=== PATIENT | male | born 1960 | race Caucasian/White ===

== ENCOUNTER 2016-12-16 14:33 | Emergency (ER) | payer SELFPAY ==
[~2016-12-16] VITALS: Ht 180.3 cm; Wt 85.9 kg
[~2016-12-16 14:33] MED LIST: NAPR500 PO
[2016-12-16 14:38] VITALS: BP 182/107; PULSE 69; RESP 16; TEMP 98.1; O2SAT 98
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
[2016-12-16] MEDS ORDERED: MEDR4PAK PO (14:53)
[2016-12-16] MEDS ORDERED: ROBA500T PO (14:57)
[2016-12-16] MEDS ORDERED: IBUP800T23 PO (14:57)
[2016-12-16] MEDS ORDERED: KETOROLAC TROMETHAMINE 60 MG/2 ML (IM) VIAL IM ONE (15:00)
[2016-12-16] MEDS ORDERED: ORPHENADRINE INJ 60 MG/2 ML AMP IM ONE (15:00)
[2016-12-16 15:22] VITALS: BP 183/102
[2016-12-17] MEDS ORDERED: HYDR-3533 PO (09:54)
== END 2016-12-16 15:41 | disposition home or self-care (01) ==
LOC: PHEFT 14:33
DX: M54.31 Sciatica, right side (principal); R03.0 Elevated blood-pressure reading, without diagnosis of hypertension
CPT/HCPCS: 96372; 99284; J1885; J2360

== ENCOUNTER 2016-12-17 06:35 | Emergency (ER) | payer SELFPAY ==
[~2016-12-17] VITALS: Ht 180.3 cm; Wt 86.0 kg
[~2016-12-17 06:35] MED LIST changes: +IBUP800T23 PO; +MEDR4PAK PO; +ROBA500T PO
[2016-12-17 06:40] VITALS: BP 208/107; PULSE 61; RESP 18; TEMP 97.7; O2SAT 99
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
[2016-12-17] MEDS ORDERED: ACETAMINOPHEN/HYDROcodone 325 MG/5 MG TAB PO ONE (08:30)
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
[2016-12-17] MEDS ORDERED: HYDR-3533 PO (09:54)
== END 2016-12-17 21:20 | disposition home or self-care (01) ==
LOC: NEPC 06:35
DX: M54.31 Sciatica, right side (principal); M62.838 Other muscle spasm
CPT/HCPCS: 93971; 99284

== ENCOUNTER 2017-05-10 11:52 | Emergency (ER) | payer SELFPAY ==
[~2017-05-10] VITALS: Ht 180.3 cm; Wt 88.0 kg
[~2017-05-10 11:52] MED LIST changes: +HYDR-3533 PO; +IBUP1TAB7 PO; -IBUP800T23 PO; -NAPR500 PO
[2017-05-10 12:00] VITALS: BP 220/119; PULSE 66; RESP 16; TEMP 98.2; O2SAT 99
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
[2017-05-10 12:10] VITALS: BP 216/119; PULSE 67; RESP 16; O2SAT 99
[2017-05-10] MEDS ORDERED: PROCHLORPERAZINE INJ 10 MG/2 ML VIAL IVP ONE (12:15)
[2017-05-10] MEDS ORDERED: METOCLOPRAMIDE HCL 10 MG/2 ML VIAL IVP ONE (12:15)
[2017-05-10] MEDS ORDERED: PROPARACAINE HCL 0.5% OPHT SOLN 15 ML BTL EACH EYE ONE (12:15)
[2017-05-10] MEDS ORDERED: KETOROLAC TROMETHAMINE 30 MG/ML (IVP) VIAL IVP ONE (12:15)
[2017-05-10] MEDS ORDERED: SODIUM CHLORIDE 0.9% FLUSH 10 ML FLUSH IVF PRN (12:15)
[2017-05-10] MEDS ORDERED: KETOROLAC TROMETHAMINE 30 MG/ML (IVP) VIAL IV PUSH ONE (12:30)
[2017-05-10] MEDS ORDERED: FLUORESCEIN SOD 1 MG STRIP EACH EYE ONE (12:30)
[2017-05-10] MEDS ORDERED: diphenhydrAMINE HCL 50 MG/ML VIAL IV PUSH ONE (12:30)
[2017-05-10] MEDS ORDERED: PROCHLORPERAZINE INJ 10 MG/2 ML VIAL IV PUSH ONE (12:30)
[2017-05-10] MEDS ORDERED: HYDR-3516 PO (12:31)
[2017-05-10 12:40] VITALS: BP 198/108; PULSE 66; RESP 16; O2SAT 97
[2017-05-10 12:53] LABS: AUTOMATED NEUTROPHIL # 5.7 TH/MM3 (1.8-7.7); BASOPHIL % 0.4 % (0.0-2.0); EOSINOPHIL # 0.1 TH/MM3 (0-0.4); HEMATOCRIT 47.9 % (39.0-51.0); MEAN CELL VOLUME 88.5 FL (80.0-100.0); MEAN CORPUSCULAR HGB CONC 32.8 % (32.0-36.0); MONO % 6.2 % (0.0-8.0); NEUT % 78.4 % (16.0-70.0); PLATELET COUNT 325 TH/MM3 (150-450); RED BLOOD COUNT 5.42 MIL/MM3 (4.50-5.90); RED CELL DISTRIBUTION WIDTH 12.5 % (11.6-17.2); WHITE BLOOD COUNT 7.2 TH/MM3 (4.0-11.0)
[2017-05-10 12:57] VITALS: BP 177/101; PULSE 66; RESP 16; O2SAT 97
[2017-05-10 13:00] LABS: HEMO FLAGS DIFF FINAL
[2017-05-10 13:02] LABS: BICARBONATE 25.2 MEQ/L (21.0-32.0)
--- NOTE | 2017-05-10 13:47 | RADRPT ---
EXAM DATE/TIME: 05/10/2017 12:55 [facility] COMPARISON: No previous studies available for comparison. INDICATIONS : Cephalgia. Pain behind left eye. RADIATION DOSE: 62.94 CTDIvol (mGy) MEDICAL HISTORY : Hypertension. SURGICAL HISTORY : Appendectomy. ENCOUNTER: Initial ACUITY: 1 day PAIN SCALE: 7/10 LOCATION: Left cranial TECHNIQUE: Multiple contiguous axial images were obtained of the head. Using automated exposure control and adj ustment of the mA and/or kV according to patient size, radiation dose was kept as low as reasonably a chievable to obtain optimal diagnostic quality images. DICOM format image data is available electro nically for review and comparison. FINDINGS: CEREBRUM: The ventricles are normal for age. No evidence of midline shift, mass lesion, hemorrhage or acute in farction. No extra-axial fluid collections are seen. POSTERIOR FOSSA: The cerebellum and brainstem are intact. The 4th ventricle is midline. The cerebellopontine angle i s unremarkable. EXTRACRANIAL: Mucosal swelling with multiple air cell opacification are identified in the ethmoid sinuses. The visu alized portion of the orbits is intact. SKULL: The calvaria is intact. No evidence of skull fracture. CONCLUSION: 1. Paranasal sinus disease with mucosal swelling and air cell opacification in the ethmoid sinuses. 2. No evidence of acute intracranial process. Norm Stallworth MD on May 10, 2017 at 13:43 Board Certified Radiologist. This report was verified electronically.
[2017-05-10 13:52] VITALS: BP 170/106; PULSE 59; RESP 16
[2017-05-10] MEDS ORDERED: AMOX875T PO (14:09)
[2017-05-10 14:43] VITALS: BP 171/101
== END 2017-05-10 14:45 | disposition home or self-care (01) ==
LOC: PHED 11:52
DX: R51 Headache (principal); R03.0 Elevated blood-pressure reading, without diagnosis of hypertension; J45.909 Unspecified asthma, uncomplicated
CPT/HCPCS: 70450; 80048; 85025; 96374; 96375; 99285; J0780; J1200; J1885